=== PATIENT | female | born 1955 | race African-American/Black ===

== ENCOUNTER 2017-02-10 19:56 | Emergency (ER) | payer OTHER ==
[~2017-02-10] VITALS: Ht 165.1 cm; Wt 83.0 kg
--- NOTE | ~2017-02-10 | CR63 ---
[facility] A Service of [facility] RADIOLOGY TEXT RESULTS PATIENT: TJ HUNTER LOCATION: [place] : 57 UNIT #: [id number] AGE: [address]: RON GARCIA APRN SEX: F ORDER DR: [id number] [facility] [address] [place], [place] [address] [id number] E MR#: [id number] Acc #: [id number] NAME: TJ HUNTER : 1955 SEX: F STUDY DATE/TIME: 02/10/2017 20:56 UNIT: [place] ROOM: STUDY DESCRIPTION: CR Chest 2 View Attending Physician: Ron Garcia Aprn Ordering Physician: Ron Garcia Aprn Primary Care Physician: No Primary Care Physician MEDICAL IMAGING REPORT This report is preliminary unless electronic signature is present EXAM Two-view chest, 02/10/2017. HISTORY 61-year-old female with cough and shortness of breath for 3 days. COMPARISON None. FINDINGS Two views of the chest demonstrate a questionable nodular density projecting over the lumbar spine on the lateral projection. This may be in the left lower lobe. This could be further characterized with a chest CT when the patient is clinically able. Lungs are otherwise clear. No pleural effusion or pneumothorax. Heart size and mediastinum are normal. Pulmonary vasculature normal. IMPRESSION 1. Questionable nodular density projecting over the lumbar spine on the lateral projection. This may be within the left lower lobe. Suggest further characterization with chest CT when the patient is clinically able. No other acute cardiopulmonary findings. Dictated by... Sarwat Peña M.D. THIS IS AN ELECTRONICALLY VERIFIED REPORT Sarwat Peña M.D. at 02/11/2017 4:41 PM HEBER/lui TD: 02/11/2017 08:41 JOB #: [id number] [facility] A Service of [facility] RADIOLOGY TEXT RESULTS PATIENT: TJ HUNTER LOCATION: [place] : 57 UNIT #: [id number] AGE: [address]: RON GARCIA APRN SEX: F ORDER DR: MEDICAL IMAGING REPORT Page 1 of 1 COPY
--- NOTE | ~2017-02-10 | CT57 ---
[facility] A Service of [facility] RADIOLOGY TEXT RESULTS PATIENT: TJ HUNTER LOCATION: [place] : 57 UNIT #: [id number] AGE: [address]: RON GARCIA APRN SEX: F ORDER DR: [id number] [facility] [address] [place], [place] [address] [id number] E MR#: [id number] Acc #: [id number] NAME: TJ HUNTER : 1955 SEX: F STUDY DATE/TIME: 02/10/2017 22:22 UNIT: [facility] ROOM: STUDY DESCRIPTION: CT Chest Wo Cont Attending Physician: Ron Garcia Aprn Ordering Physician: Ron Garcia Aprn Primary Care Physician: No Primary Care Physician MEDICAL IMAGING REPORT This report is preliminary unless electronic signature is present EXAM CT chest without contrast 02/10/2017. HISTORY 61-year-old female with productive cough and chest pain for 3 days. Questionable nodular density on chest x-ray same date. COMPARISON Chest x-ray 02/10/2017. TECHNIQUE Helical scan performed through the chest without IV contrast. Coronal and sagittal reformatted images. This CT exam was performed with one or more of the following radiation dose reduction techniques: automatic exposure control, adjustment of mA and/or kV according to patient size, and iterative reconstruction. FINDINGS Thoracic aorta normal in course and caliber. Heart size normal. No pericardial effusion. No pleural effusions. No pneumothorax. No parenchymal infiltrates or masses. No acute bony abnormality. There are some mildly prominent anterior osteophytes at multiple levels in the thoracic spine, likely accounting for the nodular appearing silhouette on the lateral projection of the comparison study. Visualized upper abdomen is unremarkable. IMPRESSION 1. No acute chest findings. There are some mildly prominent anterior osteophytes at multiple levels in the thoracic spine which likely account for the nodular silhouette noted on the lateral projection of the comparison chest x-ray. No pulmonary masses or infiltrates identified. [facility] A Service [facility] RADIOLOGY TEXT RESULTS PATIENT: TJ HUNTER LOCATION: [facility] : 57 UNIT #: [id number] AGE: [address]: RON GARCIA APRN SEX: F ORDER DR: Dictated by... Sarwat Peña M.D. THIS IS AN ELECTRONICALLY VERIFIED REPORT Sarwat Peña M.D. at 02/11/2017 4:45 PM HEBER/v[place]ia TD: 02/11/2017 09:56 JOB #: [id number] MEDICAL IMAGING REPORT Page 1 of 1 COPY
== END 2017-02-10 23:07 | disposition home or self-care (01) ==
LOC: CED 19:56 → CFTX 19:56
DX: J06.9 Acute upper respiratory infection, unspecified (principal); I10 Essential (primary) hypertension; E07.9 Disorder of thyroid, unspecified; Z86.73 Personal history of transient ischemic attack (TIA), and cerebral infarction without residual deficits; Z98.890 Other specified postprocedural states; Z79.899 Other long term (current) drug therapy; Z88.1 Allergy status to other antibiotic agents; Z88.8 Allergy status to other drugs, medicaments and biological substances
CPT/HCPCS: 71020; 71250; 99284